=== PATIENT | male | born 1965 | race Caucasian/White ===

== ENCOUNTER 2021-07-05 19:35 | Emergency (ER) | payer MEDICAID ==
[~2021-07-05] VITALS: Ht 172.7 cm; Wt 113.4 kg
--- NOTE | 2021-07-05 20:21 | NUR ---
Ge anguiano in [facility] - 07/05/21 at 2021 by GELACIO NO ROOM AVAILABLE IN THE ER, PLACED IN HALLWAY.
--- NOTE | 2021-07-05 20:21 | NUR ---
NO BEDS AVAILABLE IN THE ER. PLACED IN WAITING ROOM.
--- NOTE | 2021-07-06 03:15 | NUR ---
Patient placed in room 1a.
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
--- NOTE | 2021-07-06 03:45 | NUR ---
Dr. العلي in room for LISA
--- NOTE | 2021-07-06 04:20 | NUR ---
pt is refusing labs, Dr. العلي is made aware.
[2021-07-06] MEDS ORDERED: OLANZAPINE 10 MG VIAL IM ONE (04:30)
--- NOTE | 2021-07-06 04:40 | NUR ---
Per Dr. العلي gave Zyprexa IM order. Checked Pyxis and no vial found. Paged director housekeeping for vial and shell send it to the unit.
[2021-07-06] MEDS ORDERED: diphenhydrAMINE 50 MG/1 ML VIAL IM ONE (04:45)
[2021-07-06] MEDS ORDERED: HALOPERIDOL LACTATE 5 MG/1 ML VIAL IM ONE (04:45)
--- NOTE | 2021-07-06 04:50 | NUR ---
Per Dr. العلي d/c Zyprexa IM order due to unavailability. general car supervisor yard made aware. Verbal order given for Benadryl 50 mg IM and Haldol 5 mg IM.
[2021-07-06] MEDS ORDERED: diphenhydrAMINE 50 MG/1 ML VIAL ONE (04:55)
[2021-07-06] MEDS ORDERED: HALOPERIDOL LACTATE 5 MG/1 ML VIAL ONE (04:55)
[2021-07-06] MEDS ORDERED: LORAZEPAM 2 MG/1 ML VIAL IM ONE (05:30)
[2021-07-06] MEDS ORDERED: LORAZEPAM 2 MG/1 ML VIAL ONE (05:32)
--- NOTE | 2021-07-06 05:53 | NUR ---
Patient refuses pulse ox, bp cuff, and heart monitor leads. Explained purpose and benefits x [address] and continues to refuse. Dr. العلي made aware.
--- NOTE | 2021-07-06 07:10 | NUR ---
Recieved pt in bed resting comfortably, NAD noted.
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
--- NOTE | 2021-07-06 10:30 | NUR ---
Pt scorted out of ER by security officers w/ steady gait. Pt refused and cursed when asked to sign d/c paperwork.
== END 2021-07-06 10:56 | disposition home or self-care (01) ==
LOC: ER 20:12
DX: M54.50 Low back pain, unspecified (principal); F29 Unspecified psychosis not due to a substance or known physiological condition; F17.210 Nicotine dependence, cigarettes, uncomplicated
CPT/HCPCS: 96372 ×2; 99284; J1200; J1630; J2060